=== PATIENT | female | born 1935 | race Caucasian/White ===

== ENCOUNTER 2019-10-01 20:06 | Emergency (ER) | payer MEDICARE, SELFPAY ==
[2019-10-01 20:07] VITALS: BP 211/92; PULSE 74; RESP 18; TEMP 36.7; O2SAT 90; BMI 30.2
--- NOTE | 2019-10-01 20:46 | CTR_ITS ---
PROCEDURE INFORMATION: Exam: CT Head Without Contrast Exam date and time: 10/01/2019 8:48 PM Age: 84 years old Clinical indication: Pain; Other: HTN; Headache not specified; Additional info: Hypertensive urgency, headache TECHNIQUE: Imaging protocol: Computed tomography of the head without contrast. Radiation optimization: All CT scans at this facility use at least one of these dose optimization techniques: automated exposure control; mA and/or kV adjustment per patient size (includes targeted exams where dose is matched to clinical indication); or iterative reconstruction. COMPARISON: No relevant prior studies available. 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 No abnormal intra-axial or extra-axial fluid collections are identified. There is no midline shift. No intracranial hemorrhage identified. Ventricles: The ventricular system is within normal limits for size and configuration. Bones/joints: Unremarkable as visualized. Sinuses: Visualized sinuses are unremarkable. No fluid levels. Mastoid air cells: Visualized mastoid air cells are well aerated. Soft tissues: Unremarkable. CT/CT head wo con* [id number] IMPRESSION: 1. No acute intracranial process identified. Radiation Dose CTDIVOL = (mGy): DLP = 820.39 (mGy-cm)
--- NOTE | 2019-10-01 20:47 | ECG_ITS ---
Measurements Intervals [place] Rate: 73 P: 48 IN: 166 QRS: 53 QRSD: 89 T: 46 QT: 394 QTc: 435 SINUS RHYTHM No previous ECG available for comparison Electronically Signed On 10-02-2019 18:19:31 CDT by Aries Monae M.D. [id number]
[2019-10-01 20:53] VITALS: BP 230/86; PULSE 73; RESP 17; O2SAT 92
--- NOTE | 2019-10-01 20:55 | PC.NURSE ---
patient states she has been on blood pressure medication for two years for high blood pressure. patient states two days ago she started having high blood pressure. patient states she the highest recorded reading was 257/120 at home today.
[2019-10-01 21:15] LABS: Basophils % 0.6 %; Eosinophils # 0.3 10^3/uL (0.0-0.8); Eosinophils % 4.2 %; Hematocrit 41.6 % (37.0-47.0); Hemoglobin 12.9 g/dL (11.5-15.3); Lymphocytes # 3.8 10^3/uL (0.8-4.8); Lymphocytes % 53.1 %; Mean Corpuscular Hemoglobin 30.9 pg (28.0-34.0); Mean Corpuscular Volume 99.5 fL (81-99); Mean Platelet Volume 10.3 fL (7.4-10.4); Monocytes # 0.6 10^3/uL (0.2-0.9); Monocytes % 8.7 %; Neutrophils # 2.4 10^3/uL (1.8-7.7); Neutrophils % 33.3 %; Nucleated Red Blood Cells % 0 %; Platelet Count 242 10^3/cmm (130-400); Red Blood Count 4.18 10^6/uL (4.1-5.3); Red Cell Distribution Width 13.7 % (12.1-15.1); White Blood Count 7.1 10^3/uL (4.0-10.0)
[2019-10-01 21:34] LABS: Troponin(5th) Baseline 6 ng/L (0-10)
[2019-10-01] MEDS: hyDRALAzine 20 mg/mL INJ 1 mL 10 MG IVP ×2 (21:34→22:45)
[2019-10-01 21:42] LABS: Alanine Aminotransferase 17 U/L (0-33); Albumin Level 4.3 g/dL (3.5-5.2); Alkaline Phosphatase 47 IU/L (35-105); Anion Gap 16.1 (5-19); Aspartate Amino Transferase 22 U/L (0-32); Blood Urea Nitrogen 13 mg/dL (8-23); Calcium 9.2 mg/dL (8.5-10.5); Carbon Dioxide 26 mmol/L (22-29); Chloride 100 mmol/L (98-107); Creatinine Clr Calc Pharmacy 49.3788; Globulin 2.7 g/dL (1.3-4.6); Glucose 103 mg/dL (65-115); Magnesium 2.2 mg/dL (1.7-2.3); NT Pro B Type Natriuretic Pept 196 pg/mL (0-450); Osmolality Calculated 282 mOsm/kg (285-295); Potassium 4.1 mmol/L (3.5-5.1); Sodium 138 mmol/L (136-145); Thyroid Stimulating Hormone 4.84 uIU/mL (0.27-4.20); Total Bilirubin 0.2 mg/dL (0.15-1.2)
[2019-10-01 22:01] LABS: Add Urine Microscopic? NO
[2019-10-01 22:09] LABS: Bilirubin Urine Neg (NEGATIVE); Blood Urine Neg (Negative); Glucose Urine UA Norm (Normal); Ketones Urine Negative (Negative); Leukocyte Esterase Urine Negative (Negative); Nitrate Urine Negative (Negative); Protein Urine Neg (Negative); Specific Gravity, Urine 1.015 (1.005-1.030); Urine Appearance Clear (CLEAR); Urine Color Yellow (Yellow); Urobilinogen Urine Norm (Negative); pH Urine 6.5 (5-7)
[2019-10-01 22:13] VITALS: BP 195/78; RESP 18; O2SAT 98
--- NOTE | 2019-10-01 22:47 | ECG_ITS ---
Measurements Intervals [place] Rate: 81 P: 47 PA: 196 QRS: 49 QRSD: 94 T: 34 QT: 401 QTc: 467 SINUS RHYTHM No previous ECG available for comparison Electronically Signed On 10-02-2019 18:20:22 CDT by Aries Monae M.D. [id number]
[2019-10-01 22:54] VITALS: BP 148/60; RESP 18; O2SAT 95
[2019-10-01] MEDS: diphenhydrAMINE 50 mg/mL SDV 1mL 25 MG IVP (23:09)
[2019-10-01 23:10] VITALS: BP 137/67; PULSE 97; RESP 17; O2SAT 91
[2019-10-01 23:15] LABS: Troponin 5 2HR 8.01 ng/L (0-10); Troponin 5 2HR Delta 2.01 ABS# (0-10)
[2019-10-02 00:01] VITALS: BP 153/77; PULSE 90; RESP 16; O2SAT 92
--- NOTE | 2019-10-02 00:08 | W.ED.GENADLT ---
HPI - General Adult General: Chief complaint: General Medical Stated complaint: high bp Time Seen by Provider: 10/01/19 20:41 Source: patient and family (daughter) Mode of arrival: ambulatory Limitations: no limitations History of Present Illness: HPI narrative: Patient is an 84-year-old female patient who presents to the emergency department with hypertension. She said that throughout the day her blood pressure has been elevated and getting higher with a systolic in the 200s. She has an associated headache. No chest pain, no difficulty breathing, no urinary symptoms. No abdominal pain, no blood in her urine. Because of her elevated blood pressure she presents for evaluation. She has taking half of her blood pressure medicines in the morning and a full tablet this evening. MD complaint: Hypertension Associated symptoms: Reports headache(s); Deny chest pain, dyspnea, nausea, rash, palpitations or vomiting Review of Systems General: Reports: 10 or more systems reviewed and unremarkable except in HPI and below Const: Denies: fever(s), chills or body aches Eyes: Denies: change in vision or blurry vision ENMT: Denies: throat pain, enlarged tonsils, odynophagia, hoarseness, mouth pain or swelling of lips/tongue Card: Denies: chest pain, palpitations, irregular heart rhythm, edema or swelling of feet/ankles Resp: Denies: dyspnea, productive cough or non-productive cough GI: Denies: abdominal pain, nausea or vomiting : Denies: flank pain, difficulty voiding, dysuria, urinary frequency, urinary urgency or urinary hesitancy Musc: Denies: neck pain, back pain or extremity swelling Skin/Breast: Denies: rash, pruritus or erythema Neuro: Reports: headache(s); Denies: numbness in extremities or weakness in extremities Endo: Denies: polyuria, polydipsia or tired all the time PFS ED PFSH: Social History Smoking and tobacco status: former smoker Physical Exam Const: COMMON NORMALS: no acute distress, average body habitus, patient oriented x3, no limitations, healthy appearing, alert and well nourished HENMT: COMMON NORMALS: normocephalic, atraumatic and moist oral mucous membranes HEAD & SCALP: normocephalic and atraumatic Eye: COMMON NORMALS: Equal, round and reactive pupils present, EOMs intact bilaterally, conjunctivae normal and no scleral icterus CONJUNCTIVA: Yes conjunctivae normal PUPIL: Yes Equal, round and reactive pupils present Neck/C-Spine: COMMON NORMALS: full ROM, supple, no meningeal signs, no JVD and No carotid bruits Chest: COMMONS NORMALS: normal inspection of the chest and normal palpation of entire chest wall Resp: COMMON NORMALS: normal respiratory effort, No retractions, No use of accessory muscles, clear to auscultation bilaterally and percussion normal AUSCULTATION: clear to auscultation bilaterally PERCUSSION: percussion normal Cardio: COMMON NORMALS: no JVD, regular rate, regular rhythm, S1 normal heart sound present, S2 normal heart sound present, No gallops present (Cardio), No clicks present (Cardio), No murmurs present (Cardio), No rub (Cardio) and Peripheral pulses 2+ throughout RATE: regular rate RHYTHM: regular rhythm HEART SOUNDS: S1 normal heart sound present and S2 normal heart sound present PERIPHERAL PULSES: Peripheral pulses 2+ throughout GI: COMMON NORMALS: Normal to inspection, nondistended, normoactive bowel sounds present, Soft to palpation, non-tender, No hepatosplenomegaly present, no masses and no bruits PALPATION: Yes Soft to palpation and Yes No hepatosplenomegaly present : COMMON NORMALS: Yes no CVA tenderness BLADDER/KIDNEY EXAM: Yes no CVA tenderness Back/Pelvis: COMMON NORMALS: no CVA tenderness Extremity: COMMON NORMALS: normal to inspection, full ROM, capillary refill normal, no calf tenderness and no pedal edema Neuro: COMMON NORMALS: patient oriented x3 SENSORIUM/ORIENTATION: Yes alert MENINGEAL SIGNS: Yes no meningeal signs Skin: COMMON NORMALS: no rashes or lesions noted, no wounds, turgor normal, no jaundice, no petechiae and no mottling GENERAL SKIN EXAM: no rashes or lesions noted and turgor normal Course Reevaluation(s): Reevaluation #1: Patient seen, she feels better. Itching and rash is resolved. Blood pressure 153/77. Patient thinks she is ready to be discharged home. We will discharge her home, to follow-up with her primary care provider. Discussed her lab and imaging findings with her, all negative for acute findings. TSH only mildly elevated, she is advised to follow-up with her primary care provider for repeat testing in 6 to 8 weeks. She voiced understanding and is in agreement with the plan Time: 00:09 Vital Signs: Vital signs: Vital Signs Temperature 98.0 F 10/01/19 20:07 Pulse Rate 90 10/02/19 00:15 Respiratory Rate 15 10/02/19 00:15 Blood Pressure 146/86 10/02/19 00:15 Pulse Oximetry 92 10/02/19 00:15 [facility] - General Adult Lab Data: Labs: Lab Results 10/01/19 10/01/19 10/01/19 Range/Units 20:50 20:50 20:50 WBC 7.1 (4.0-10.0) 10^3/ uL RBC 4.18 (4.1-5.3) 10^6/u L Hgb 12.9 (11.5-15.3) g/dL Hct 41.6 (37.0-47.0) % MCV 99.5 H (81-99) fL MCH 30.9 (28.0-34.0) pg MCHC 31.0 (30.0-36.0) g/dL RDW 13.7 (12.1-15.1) % Plt Count 242 (130-400) 10^3/c mm MPV 10.3 (7.4-10.4) fL Neut % (Auto) 33.3 % Lymph % (Auto) 53.1 % [place] % (Auto) 8.7 % Eos % (Auto) 4.2 % Baso % (Auto) 0.6 % Neut # (Auto) 2.4 (1.8-7.7) 10^3/u L Lymph # (Auto) 3.8 (0.8-4.8) 10^3/u L [place] # (Auto) 0.6 (0.2-0.9) 10^3/u L Eos # (Auto) 0.3 (0.0-0.8) 10^3/u L Baso # (Auto) 0.0 (0.0-0.1) 10^3/u L Nucleated RBC % (a uto) 0 % Nucleated RBCs # 0.0 /100WBC Sodium 138 (136-145) mmol/L Potassium 4.1 (3.5-5.1) mmol/L Chloride 100 (98-107) mmol/L Carbon Dioxide 26 (22-29) mmol/L Anion Gap 16.1 (5-19) BUN 13 (8-23) mg/dL Creatinine 0.9 (0.5-0.9) mg/dL Glucose 103 (65-115) mg/dL Calculated Osmolal ity 282 L (285-295) mOsm/k g Calcium 9.2 (8.5-10.5) mg/dL Magnesium 2.2 (1.7-2.3) mg/dL Total Bilirubin 0.2 (0.15-1.2) mg/dL AST 22 (0-32) U/L ALT 17 (0-33) U/L Alkaline Phosphata se 47 (35-105) IU/L Troponin T Baselin e 6 (0-10) ng/L Troponin T 120 Min latoya (0-10) ng/L Delta Troponin T (0-10) ABS# NT-Pro-B Natriuret Pep 196 (0-450) pg/mL Total Protein 7.0 (6.6-8.7) g/dL Albumin 4.3 (3.5-5.2) g/dL Globulin 2.7 (1.3-4.6) g/dL TSH 4.84 H (0.27-4.20) uIU/ mL Urine Color (Yellow) Urine Appearance (CLEAR) Urine pH (5-7) Ur Specific Gravit y (1.005-1.030) Urine Protein (Negative) Urine Glucose (UA) (Normal) Urine Ketones (Negative) Urine Blood (Negative) Urine Nitrate (Negative) Urine Bilirubin (NEGATIVE) Urine Urobilinogen (Negative) mg/dL Ur Leukocyte Johana ase (Negative) 10/01/19 10/01/19 Range/Units 21:07 22:43 WBC (4.0-10.0) 10^3/ uL RBC (4.1-5.3) 10^6/u L Hgb (11.5-15.3) g/dL Hct (37.0-47.0) % MCV (81-99) fL MCH (28.0-34.0) pg MCHC (30.0-36.0) g/dL RDW (12.1-15.1) % Plt Count (130-400) 10^3/c mm MPV (7.4-10.4) fL Neut % (Auto) % Lymph % (Auto) % Woodford % (Auto) % Eos % (Auto) % Baso % (Auto) % Neut # (Auto) (1.8-7.7) 10^3/u L Lymph # (Auto) (0.8-4.8) 10^3/u L [place] # (Auto) (0.2-0.9) 10^3/u L Eos # (Auto) (0.0-0.8) 10^3/u L Baso # (Auto) (0.0-0.1) 10^3/u L Nucleated RBC % (a uto) % Nucleated RBCs # /100WBC Sodium (136-145) mmol/L Potassium (3.5-5.1) mmol/L Chloride (98-107) mmol/L Carbon Dioxide (22-29) mmol/L Anion Gap (5-19) BUN (8-23) mg/dL Creatinine (0.5-0.9) mg/dL Glucose (65-115) mg/dL Calculated Osmolal ity (285-295) mOsm/k g Calcium (8.5-10.5) mg/dL Magnesium (1.7-2.3) mg/dL Total Bilirubin (0.15-1.2) mg/dL AST (0-32) U/L ALT (0-33) U/L Alkaline Phosphata se (35-105) IU/L Troponin T Baselin e (0-10) ng/L Troponin T 120 Min latoya 8.01 (0-10) ng/L Delta Troponin T 2.01 (0-10) ABS# NT-Pro-B Natriuret Pep (0-450) pg/mL Total Protein (6.6-8.7) g/dL Albumin (3.5-5.2) g/dL Globulin (1.3-4.6) g/dL TSH (0.27-4.20) uIU/ mL Urine Color Yellow (Yellow) Urine Appearance Clear (CLEAR) Urine pH 6.5 (5-7) Ur Specific Gravit y 1.015 (1.005-1.030) Urine Protein Neg (Negative) Urine Glucose (UA) Norm (Normal) Urine Ketones Negative (Negative) Urine Blood Neg (Negative) Urine Nitrate Negative (Negative) Urine Bilirubin Neg (NEGATIVE) Urine Urobilinogen Norm (Negative) mg/dL Ur Leukocyte Johana ase Negative (Negative) Imaging Data^: CT Head: Radiologist's impression: [facility] [address] [place] [address] CT Scan Report Signed Patient: Lisa Weber #: [id number] : 6Acct#:[id number] Age/Sex: 84 / FADM Date: 10/01/19 Loc: ERRoom/Bed: Attending Dr: Ordering Provider/Ordering MD: Félix Parker MD, [facility] Date of Service: 10/01/19 Procedure(s): CT head wo con* [id number] Accession Number(s): [id number] Report Number: [id number] PROCEDURE INFORMATION: Exam: CT Head Without Contrast Exam date and time: 10/01/2019 8:48 PM Age: 84 years old Clinical indication: Pain; Other: HTN; Headache not specified; Additional info: Hypertensive urgency, headache TECHNIQUE: Imaging protocol: Computed tomography of the head without contrast. Radiation optimization: All CT scans at this facility use at least one of these dose optimization techniques: automated exposure control; mA and/or kV adjustment per patient size (includes targeted exams where dose is matched to clinical indication); or iterative reconstruction. COMPARISON: No relevant prior studies available. 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 No abnormal intra-axial or extra-axial fluid collections are identified. There is no midline shift. No intracranial hemorrhage identified. Ventricles: The ventricular system is within normal limits for size and configuration. Bones/joints: Unremarkable as visualized. Sinuses: Visualized sinuses are unremarkable. No fluid levels. Mastoid air cells: Visualized mastoid air cells are well aerated. Soft tissues: Unremarkable. CT/CT head wo con* [id number] IMPRESSION: 1. No acute intracranial process identified. Radiation Dose CTDIVOL = (mGy): DLP = 820.39 (mGy-cm) Dictated By:Jordan Molina MD Signed By:Jesse,Jordan MDSigned Date/Time:10/01/192125 DD/ 24 EKG Data^: EKG 1: Attestation: I personally reviewed and interpreted this EKG as follows: EKG interpretation date: 10/01/19 EKG interpretation time: 20:59 Prior EKG tracings: not available for review Interpretation: Normal sinus rhythm Heart rate 73 beats per minute. Normal axis. No ST changes. Computer generated interpretation: Head CT 10/01/19 20:46 IMPRESSION: 1. No acute intracranial process identified. Radiation Dose CTDIVOL = (mGy): DLP = 820.39 (mGy-cm) EKG 2: Attestation: I personally reviewed and interpreted this EKG as follows: EKG interpretation date: 10/01/19 EKG interpretation time: 22:59 Prior EKG tracings: available for review Interpretation: Normal sinus rhythm. Heart rate 81 bpm. Normal axis. No ST changes. Unchanged from earlier today. Computer generated interpretation: Head CT 10/01/19 20:46 IMPRESSION: 1. No acute intracranial process identified. Radiation Dose CTDIVOL = (mGy): DLP = 820.39 (mGy-cm) Discharge Plan Discharge Patient Disposition: Home, Self-Care Clinical Impression: Hypertensive urgency Condition: Stable Prescriptions: New triamcinolone acetonide 0.5 % cream 1 applic TOPICAL BID Qty: 15 RF: 0 Continued vitamin E 600 unit Capsule 600 unit PO DAILY RF: 0 aspirin 81 mg Tablet,Delayed Release (Dr/Ec) 81 mg PO DAILY RF: 0 pantoprazole 40 mg Tablet,Delayed Release (Dr/Ec) 40 mg PO DAILY RF: 0 losartan 25 mg Tablet 25 mg PO DAILY RF: 0 escitalopram oxalate 20 mg Tablet 20 mg PO DAILY RF: 0 [id number] oil [id number] Capsule 1 cap PO DAILY RF: 0 Vitamin D3 50 mcg (2,000 unit) Capsule 50 mcg PO DAILY RF: 0 Discharge Orders: Discharge Order (Routine); Ordered 10/02/19 Ordered By: Félix Parker Patient Instructions: Hypertensive Crisis (ED) Activity Restrictions/Additional Instructions: Return for any new or worsening symptoms. Follow-up with your primary care provider within 3 days. Continue your home medications as prescribed. 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
[2019-10-02 00:15] VITALS: BP 146/86; PULSE 90; RESP 15; O2SAT 92
== END 2019-10-02 00:17 | disposition home or self-care (01) ==
PROVIDERS: Emergency Provider Family Medicine
DX: I16.0 Hypertensive urgency (principal); Z79.82 Long term (current) use of aspirin; Z87.891 Personal history of nicotine dependence
CPT/HCPCS: 12345; 70450; 80053; 81003; 83735; 83880; 84443; 84484; 85025; 93005; 96374; 96375; 96376; 99283; 99284; J0360; J1200

== ENCOUNTER 2019-10-02 00:48 | Observation (INO) | payer MEDICARE, SELFPAY ==
[2019-10-02] VITALS (14 sets, daily range): BP systolic 118–183; BP diastolic 58–92; PULSE 72–88; RESP 16–20; TEMP 36.7–37.1; O2SAT 91–95; BMI 30.9
--- NOTE | 2019-10-02 00:51 | ECG_ITS ---
Measurements Intervals [place] Rate: 71 P: 52 SC: 175 QRS: 52 QRSD: 93 T: 42 QT: 427 QTc: 466 SINUS RHYTHM No previous ECG available for comparison Electronically Signed On 10-02-2019 18:19:37 CDT by Aries Monae M.D. [id number]
--- NOTE | 2019-10-02 00:52 | W.ED.SYNCOPE ---
HPI - Syncope General: Chief Complaint: Syncope Stated Complaint: fainting Time Seen by Provider: 10/02/19 00:50 History of Present Illness: HPI narrative: Patient is an 84-year-old female comes to the ED with syncopal episode. Past medical history of GERD and hypertension. Patient was just discharged from emergency department for hypertensive urgency. Patient had high blood pressures and was given some hydralazine while here in the ED to help lower blood pressures. Lab work performed before patient was discharged earlier tonight EKG showed normal sinus rhythm and troponin was negative. CBC, CMP and UA were also performed and were unremarkable. CT of head showed no acute findings. Patient's current blood pressure here in the ED is 136/61. Her highest blood pressure in the ED was 230/86 and that was around 11pm on 09/30. patient's syncopal episode occurred while she was sitting down and her family member was right next to her and was able and her rest up against her body. Syncopal episode lasted approximately around 60 seconds. There was no fall or head trauma that occurred. Patient currently lives in [place] and is here visiting family. Patient says she has had bilateral lower leg swelling and pain that started right after her plane ride and car travel to [place]. She denies any shortness of breath, cough or chest pains. Patient says she is not in any past blood clots or DVTs. Patient does take aspirin 81 mg daily but is not on any other blood thinners. After syncopal episode patient says she feels a little shaky. Associated symptoms: Reports lightheadedness; Deny abdominal pain, chest pain, fever(s), headache(s) or nausea Review of Systems Const: Reports: other ( feels shakey ); Denies: fever(s), chills or fatigue Eyes: Denies: change in vision or eye discomfort ENMT: Denies: throat pain, odynophagia, nasal discharge or nasal congestion Card: Reports: lightheadedness and syncope; Denies: chest pain, palpitations, edema, swelling of feet/ankles, dyspnea on exertion or orthopnea Resp: Denies: dyspnea, productive cough or non-productive cough GI: Denies: abdominal pain, nausea, vomiting, diarrhea, constipation or hematochezia : Denies: flank pain, dysuria or hematuria Musc: Reports: extremity pain (right and left lower extremities) and extremity swelling (right and left lower extremities); Denies: neck pain or back pain Skin/Breast: Denies: rash or new lesions Neuro: Denies: headache(s), numbness in extremities or weakness in extremities PFSH ED PFSH: Social History Smoking and tobacco status: former smoker Physical Exam Const: COMMON NORMALS: no acute distress, patient oriented x3 and alert GENERAL APPEARANCE: cooperative and comfortable HENMT: COMMON NORMALS: normocephalic HEAD & SCALP: normocephalic MOUTH: Normal oral and palatal mucosa present THROAT: posterior oropharynx normal and uvula midline Neck/C-Spine: COMMON NORMALS: supple GENERAL: Yes normal visual inspection Resp: COMMON NORMALS: normal respiratory effort, No retractions, No use of accessory muscles and clear to auscultation bilaterally EFFORT & INSPECTION: Yes able to speak in complete sentences and No respiratory distress AUSCULTATION: clear to auscultation bilaterally Cardio: COMMON NORMALS: regular rate, regular rhythm, S1 normal heart sound present, S2 normal heart sound present, No gallops present (Cardio), No clicks present (Cardio), No murmurs present (Cardio) and Peripheral pulses 2+ throughout RATE: regular rate RHYTHM: regular rhythm HEART SOUNDS: S1 normal heart sound present and S2 normal heart sound present PERIPHERAL PULSES: Peripheral pulses 2+ throughout GI: COMMON NORMALS: Normal to inspection, nondistended, normoactive bowel sounds present, Soft to palpation, non-tender and no masses PALPATION: Yes Soft to palpation : COMMON NORMALS: Yes no CVA tenderness BLADDER/KIDNEY EXAM: Yes no CVA tenderness Back/Pelvis: COMMON NORMALS: no CVA tenderness Extremity: GENERAL: Yes normal exam except as noted and Yes edema (Right and left lower extremity 1+ pitting edema.) Neuro: COMMON NORMALS: patient oriented x3, CN's II-XII intact bilaterally, moves all extremities, no focal motor deficits and no sensory deficits noted SENSORIUM/ORIENTATION: Yes alert SENSORY EXAM: Yes extremities (intact) MOTOR EXAM: 5/5 motor strength present throughout Skin: COMMON NORMALS: no rashes or lesions noted GENERAL SKIN EXAM: no rashes or lesions noted and dry skin Course Consultations: Consultation #1: I contacted the [facility] on-call hospitalist and discussed patient's case with . He said that he would like to come in and see the patient and talk with the family to see what their thoughts are and then he would make a decision on admitting from there. Time: 03:03 Vital Signs: Vital signs: Vital Signs Temperature 98.1 F 10/02/19 00:53 Pulse Rate 79 10/02/19 02:33 Respiratory Rate 20 H 10/02/19 01:15 Blood Pressure 146/65 10/02/19 02:33 Pulse Oximetry 93 10/02/19 02:33 MDM - Syncope MDM Narrative: Medical decision making narrative: Patient is an 84-year-old female comes to the ED after syncopal episode. Patient was just discharged from the emergency department after hypertensive urgency and was sitting outside when syncopal episode occurred. She then was readmitted to the ED for reevaluation. Patient had an extensive work-up during ED visit earlier that night. CT of the head was normal, CBC and CMP and UA were unremarkable EKG showed normal sinus rhythm and troponins were negative. During this visit to the ED after syncopal episode patient admitted having some bilateral leg swelling and pain and her oxygen level was running between 90 and 93%. Nurse then applied 2 L of oxygen via nasal cannula and patient has been running at about 93% O2. Patient has never been on oxygen in the past or at home. Lungs were clear to auscultation bilaterally. Ultrasound venous duplex of both lower extremity showed no blood clots or DVTs. Chest x-ray showed bilateral mild patchy airspace opacities possibly atelectasis or consolidation. I contacted the on-call hospitalist here at [facility] and told him about patient's case. He said he would come down to visit patient, talk with family and evaluate her and then make a decision on admission. Told patient about hospitalist coming down to evaluate patient. Patient understood and agreed with plan. Imaging Data^: CXR: Attestation: I personally reviewed and interpreted this imaging study as follows: Radiologist's impression: [address] [address] XRay Report Signed Patient: Lisa Weber #: [id number] : 6Acct#:[id number] Age/Sex: 84 / FADM Date: 10/02/19 Loc: ERRoom/Bed: Attending Dr: Ordering Provider/Ordering MD: Paul Riley Date of Service: 10/02/19 Procedure(s): XR chest 1V portable [id number] Accession Number(s): [id number] Report Number: [id number] PROCEDURE INFORMATION: Exam: XR Chest, 1 View Exam date and time: 10/02/2019 1:21 AM Age: 84 years old Clinical indication: Other: Syncope and collapse, low BP; Additional info: Syncopal episode TECHNIQUE: Imaging protocol: XR of the chest Views: 1 view. COMPARISON: No relevant prior studies available. FINDINGS: Lungs: Mild patchy airspace opacities (atelectasis and/or consolidation) at bilateral lung bases. Pulmonary vasculature within normal limits. Pleural space: No visible pneumothorax or pleural effusion. Heart/Mediastinum: Heart size within normal limits. Bones/joints: No emergent findings identified. XR/XR chest 1V portable [id number] IMPRESSION: 1. Mild patchy airspace opacities (atelectasis and/or consolidation) at bilateral lung bases. Dictated By:Jordan Molina MD Signed By:Jordan Molina MDSigned Date/Time:10/02/19150 DD/ 015 US Vascular: Attestation: I personally reviewed and interpreted this imaging study as follows: Radiologist's impression: Ultrasound venous duplex bilateral lower extremities?prelim report- showed no DVTs or blood clots seen. 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
--- NOTE | 2019-10-02 01:03 | USR_ITS ---
PROCEDURE INFORMATION: Exam: US Duplex Lower Extremity Veins, Bilateral Exam date and time: 10/02/2019 2:14 AM Age: 84 years old Clinical indication: Swelling (edema) of limb; Lower extremity, bilateral; Additional info: Swelling in both with pain TECHNIQUE: Imaging protocol: Real-time duplex ultrasound of the extremities with 2-D mishra scale, color Doppler flow and spectral waveform analysis with image documentation. Complete exam focused on the bilateral lower extremity veins. COMPARISON: No relevant prior studies available. FINDINGS: Right deep veins: No deep venous thrombosis in the visualized right common femoral, profunda femoris, superficial femoral, popliteal, peroneal, or posterior tibial veins. Right superficial veins: Saphenofemoral junction is patent without thrombus. Left deep veins: No deep venous thrombosis in the visualized left common femoral, profunda femoris, superficial femoral, popliteal, peroneal, or posterior tibial veins. Left superficial veins: Saphenofemoral junction is patent without thrombus. Soft tissues: Unremarkable. US/CV venous duplex [facility] [id number] IMPRESSION: No deep venous thrombosis in the visualized bilateral lower extremities.
--- NOTE | 2019-10-02 01:11 | PC.NURSE ---
patient was discharged from ED and was waiting outside of ED for a ride with her daughter. patient stated she felt faint and saw black. patients daughter states that patient was sitting and leaned on her and went down to the ground. patient states that she is not feeling faint in the ED but has a headache.
--- NOTE | 2019-10-02 01:20 | XRR_ITS ---
PROCEDURE INFORMATION: Exam: XR Chest, 1 View Exam date and time: 10/02/2019 1:21 AM Age: 84 years old Clinical indication: Other: Syncope and collapse, low BP; Additional info: Syncopal episode TECHNIQUE: Imaging protocol: XR of the chest Views: 1 view. COMPARISON: No relevant prior studies available. FINDINGS: Lungs: Mild patchy airspace opacities (atelectasis and/or consolidation) at bilateral lung bases. Pulmonary vasculature within normal limits. Pleural space: No visible pneumothorax or pleural effusion. Heart/Mediastinum: Heart size within normal limits. Bones/joints: No emergent findings identified. XR/XR chest 1V portable [id number] IMPRESSION: 1. Mild patchy airspace opacities (atelectasis and/or consolidation) at bilateral lung bases.
--- NOTE | 2019-10-02 01:23 | PC.NURSE ---
patient placed on 2 liters of oxygen to maintain spo2 > 91
[2019-10-02] MEDS: acetaminophen 500 mg Tablet PO (02:43)
[2019-10-02] MEDS: sodium chloride 0.9% 500 ML IV (03:24)
[2019-10-02] MEDS: cefTRIAXone 1,000 MG in sodium chloride 0.9% (plus) 50 ML 100 MG IV (03:25)
--- NOTE | 2019-10-02 03:27 | P.HP_ITS ---
Providers/Chief Complaint Chief Complaint: fainting History of Present Illness Lisa Weber is a 84 year old female carries history of hypertension, GERD with no significant other past medical history came in with chief complaint of high blood pressure and headache. Patient has traveled from [place] to attend a here, today she was experiencing headache all day and when he checked her blood pressure it was 257/120, she took extra dose of losartan but her pressure was consistently high hence decided to come to the ED. She got hydralazine for her blood pressure 230/86, was discharged after her blood pressure reduced to 141/58mmhg. while she was in the parking lot she felt dizzy and had syncopal event which was witnessed by her daughter who brought her back. On her second visit her blood pressure has been ranging between 1 46-1 83mmhg systolic, she was on 2 L nasal cannula initially, I had her walk down the miranda, she went to bathroom, she was not requiring oxygen at all when I checked her pulse ox on room air, no active respiratory stress, she has been afebrile, she is denying chest pain, shortness of breath, fever, and is constantly only had one case in [place]. She has not been exposed to anyone with COVID. Her chest x-ray is consistent with basal atelectasis, she has received ceftriaxone and azithromycin in the ER. She denies history of stroke, [place], aortic aneurysm. Diagnostics in the ER are unremarkable, she has negative CT head, no clots in her legs bilaterally, Dopplers done in the ER, x-ray consistent with atelectasis, troponins negative, EKG unremarkable At the time of my evaluation negative orthostasis, requiring no oxygen on room air, systolic blood pressure 180/90mmhg, no symptoms at all, Romberg's sign negative Review of Systems Const: Denies: fever(s) or chills Eyes: Denies: change in vision ENMT: Denies: throat pain Card: Denies: chest pain Resp: Denies: dyspnea GI: Denies: abdominal pain : Denies: flank pain Musc: Denies: neck pain Skin/Breast: Denies: rash Neuro: Denies: headache(s) Psych: Denies: anxiety Endo: Denies: polyuria Natalio/Lymph: Denies: easy bruising All/Imm: Denies: urticaria Medications/Allergies Home Medications Medication Instructions Recorded Confirmed Last Taken Type Vitamin D3 50 mcg PO DAILY 10/01/19 10/01/19 10/01/19 History aspirin 81 mg PO DAILY 10/01/19 10/01/19 10/01/19 History escitalopram oxalate 20 mg PO DAILY 10/01/19 10/01/19 10/01/19 History losartan 25 mg PO DAILY 10/01/19 10/01/19 10/01/19 History [id number]-fish oil 1 cap PO DAILY 10/01/19 10/01/19 10/01/19 History pantoprazole 40 mg PO DAILY 10/01/19 10/01/19 10/01/19 History vitamin E 600 unit PO DAILY 10/01/19 10/01/19 10/01/19 History triamcinolone acetonide 1 applic TOPICAL BID #15 gm 10/02/19 Unknown Rx Allergies Allergy/AdvReac Type Severity Reaction Status Date / Time No Known Allergies Allergy Verified 10/01/19 20:14 PFSH Acute PFSH: Medical History (Updated 10/02/19 @ 03:38 by Aries Vu MD) GERD (gastroesophageal reflux disease) Hypertension Surgical History (Updated 10/02/19 @ 03:36 by Aries Vu MD) H/O colectomy Diverticulitis S/P cholecystectomy Family History (Updated 10/02/19 @ 03:37 by Aries Vu MD) Other Hypertension Denies family history of Hyperlipidemia Lung disease Social History (Updated 10/02/19 @ 03:37 by Aries Vu MD) Smoking and tobacco status: former smoker Alcohol intake: never Substance/Drug Use: never Lives independently: Yes Housing: House Vitals/I&O/Wt Last Vital Signs Temp 98.1 F 10/02/19 00:53 Pulse 79 10/02/19 03:00 Resp 18 10/02/19 03:00 BP 183/76 10/02/19 03:00 Pulse Ox 95 10/02/19 03:00 Weight last 48 hrs Weight 81.647 kg Physical Exam Narrative: EXAM NARRATIVE: Head to toe examination Patient sitting at the bedside, I have evaluated her gait, she walked down the miranda Did not require oxygen at all No active respiratory distress Romberg's sign negative Orthostatics negative S1, S2 no tachycardia or murmur No signs of heart failure Lungs are clear to auscultation no active adventitious sounds Abdomen soft nontender nondistended bowel sound present Neurologically nonfocal exam Alert oriented x3 GCS 15 Appropriate mood and affect Skin does not show any sign ischemia gangrene ulcer Data Micro: Microbiology 10/02/19 02:57 Blood Culture - Preliminary Blood SPECIMEN COLLECTED 10/02/19 02:58 Blood Culture - Preliminary Blood SPECIMEN COLLECTED A&P Assessment and plan (1) Hypertensive urgency: Status: Acute (2) Syncopal episodes: Status: Acute Additional A&P Information Hypertensive urgency and syncopal event secondary to rapid decrease in her blood pressure Patient is and is now feeling better with her blood pressure fluctuating between 1 60-1 80mmhg systolic Negative orthostasis, negative Romberg sign, no aortic stenosis murmur, no neurological deficit, EKG unremarkable, bilateral leg Dopplers negative for DVT, CT head negative for acute pathology Chest x-ray is consistent with atelectasis, she saturating well on room air She received ceftriaxone and azithromycin in the ER, will discontinue antibiotics, low risk for COVID, she does not have infiltrates on x-ray in my opinion I believe her syncopal event was due to rapid decrease in blood pressure, I will target map reduction 25%, her systolic blood pressure today was 257mmhg and diastolic 120 mmHg We will check TSH No active murmur, would not order an echo, she denies history of NC, CHF or valvular lesion Add lisinopril and low-dose amlodipine DVT prophylaxis: Lovenox GI prophylaxis protonix Cardiac diet Full code Attestations Medical Necessity Statement*: Anticipating discharge within 48 hours currently needs management for blood pressure management, she had 1 syncopal event in the parking lot that will need observation overnight Time Spent in Patient Care: 45 Coding Level of Care Code Acute Fitting Room Supervisor for [facility] Fwmeghan Diagnoses Hypertensive urgency I16.0 Syncopal episodes R55
[2019-10-02] MEDS: azithromycin 500 MG in sodium chloride 0.9% 250 ML 250 MG IV (04:01)
[2019-10-02 05:34] LABS: Free T4 Free Thyroxine 1.22 ng/dL (0.82-1.77)
[2019-10-02] MEDS: enoxaparin 40 mg/0.4 mL Syringe SUBCUT (08:51)
[2019-10-02] MEDS: aspirin 81 mg EC Tablet PO (08:52)
[2019-10-02] MEDS: lisinopril 10 mg Tablet PO (08:52)
[2019-10-02] MEDS: losartan 50 mg Tablet 25 MG PO (08:52)
[2019-10-02] MEDS: pantoprazole DR 40 mg Tablet PO (08:53)
--- NOTE | 2019-10-02 12:20 | PM.DCS ---
Discharge Providers Date of Admission: 10/02/19 03:44 Date of Discharge: October 02, 2019 Attending Provider at Admission: Aries Vu MD Attending Provider at Discharge: Juan Pablo Garcia MD Diagnoses at Discharge Discharge Diagnosis (1) Hypertensive urgency: Status: Acute (2) Syncopal episodes: Status: Acute Reason for Visit Reason for Visit: fainting Hospital Course Discharge Summary: Lisa Weber is a 84 year old female carries history of hypertension, GERD with no significant other past medical history came in with chief complaint of high blood pressure and headache. Patient has traveled from [place] to attend a here, today she was experiencing headache all day and when he checked her blood pressure it was 257/120, she took extra dose of losartan but her pressure was consistently high hence decided to come to the ED. She got hydralazine for her blood pressure 230/86, was discharged after her blood pressure reduced to 141/58mmhg. While she was in the parking lot she felt dizzy and had syncopal event which was witnessed by her daughter who brought her back. On her second visit her blood pressure has been ranging between 1 46-1 83mmhg systolic, she was on 2 L nasal cannula initially, she walked down the miranda, she went to bathroom, she was not requiring oxygen at all when, no active respiratory stress, she has been afebrile, she is denying chest pain, shortness of breath, fever. She has not been exposed to anyone with COVID. Her chest x-ray is consistent with basal atelectasis, she has received ceftriaxone and azithromycin in the ER. She denies history of stroke, [place], aortic aneurysm. Diagnostic in the ER showed a normal CBC, normal BMP with an elevated TSH of 4.8 but free T4 was within normal limits, urinalysis was within normal limits as well. CT head was done which was negative for any acute injury and lower limb Dopplers were done which is negative for any DVT. She is admitted to the floor for observation. As patient did not have any fever, no leukocytosis and no active signs of respiratory distress she was not started on any further antibiotics. Amlodipine was added to her home medication her blood pressure remained stable. Next morning her blood pressure is a lot better and she was denying of any dizziness. Patient walked around in the miranda without having any dizziness though orthostatics were checked which were mildly positive. Patient and family was extensively counseled and educated regarding positional blood pressures and she will educated about sitting up and standing up slowly from lying down position to prevent any further dizziness. Patient was also advised to check her blood pressure at least twice a day and maintain a blood pressure diary for next 2 weeks and then follow-up with the primary care physician in [place]. Patient is also advised to take amlodipine 5 mg daily and if the blood pressure is more than 160 or take an extra tablet of amlodipine not more than 1 time a day. Patient and patient's daughter verbalized understanding. She is been discharged in hemodynamic stable condition with no further symptoms of dizziness. Physical Exam Narrative: EXAM NARRATIVE: General: No acute distress, AO x3 HEENT: PERRLA, pupils bilaterally equal and reactive Chest: Normal vesicular breath sounds, no added sounds, equal good air entry bilaterally CVS: S1-S2 regular, no murmurs, no tachycardia, no gallops, no rubs Abdomen: Soft, nontender, no organomegaly, bowel sounds present Neuro: No focal deficits, no facial deformity, AO x3, power 5/5 in all limbs Discharge Data Data Completed and Pending: Completed Studies During Hospitalization Category Date Time Status XR chest 1V radha ble [id number] Stat Exams 10/02/19 01:20 [place] [id number] Urgent Ultrasound 10/02/19 01:03 Completed Pending at discharge Category Date Time Status Blood Culture Sta t Lab 10/02/19 02:57 Results Labs from last 24 hours 10/02/19 02:57 Free T4 1.22 Vitals: Last Vital Signs Temp 98.7 F 10/02/19 07:18 Pulse 76 10/02/19 11:11 Resp 18 10/02/19 12:02 BP 153/72 10/02/19 11:11 Pulse Ox 91 10/02/19 07:18 Discharge Plan Discharge Patient Disposition: Home, Self-Care Condition: Stable Prescriptions: New amlodipine 5 mg Tablet 5 mg PO DAILY Qty: 30 RF: 0 Continued vitamin E 600 unit Capsule 600 unit PO DAILY RF: 0 aspirin 81 mg Tablet,Delayed Release (Dr/Ec) 81 mg PO DAILY RF: 0 pantoprazole 40 mg Tablet,Delayed Release (Dr/Ec) 40 mg PO DAILY RF: 0 losartan 25 mg Tablet 25 mg PO DAILY RF: 0 escitalopram oxalate 20 mg Tablet 20 mg PO DAILY RF: 0 [id number]-FA-fish oil [id number] Capsule 1 cap PO DAILY RF: 0 Vitamin D3 50 mcg (2,000 unit) Capsule 50 mcg PO DAILY RF: 0 triamcinolone acetonide 0.5 % cream 1 applic TOPICAL BID Qty: 15 RF: 0 Discharge Orders: Discharge Order (Routine); Ordered 10/02/19 Ordered By: Juan Pablo Garcia Discharge Diet: Cardiac Discharge Activity: Resume usual activity Patient Instructions: Amlodipine (By mouth), Hypertension, How to Take a Blood Pressure (GEN), Hypertensive Crisis (GEN) Activity Restrictions/Additional Instructions: Amlodipine is a new medication which is been added to your medication list. Please check blood pressure twice a day and maintain a blood pressure diary and please follow up with your PCP in [place] within 2 weeks. Your blood pressure should be less than 140/80 mmHg. If your blood pressure rises more than 160 mmHg then he can take an extra tablet of amlodipine but please do not take more than 1 extra tablet a day. If her blood pressure continues to remain elevated at that point please visit the ER. Discharge Attestations Time Spent in Discharge Care*: greater than 30 min Specific Discharge Activities: Specific discharge activities: educating patient, educating and/or supporting family/caregiver, discussing with pillowcase cutter/social workers/dc planners, documenting/other paperwork and evaluating patient/reviewing data Status at Discharge: Cognitive status at discharge: cognitively intact, Behavioral status at discharge: cooperative, Functional status at discharge: independent ambulation Overall status at discharge: patient is back to baseline Quality Metrics Clinical Quality Measures During this hospital stay, did patient experience: None Coding Level of Care Code Acute 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
== END 2019-10-02 13:24 | disposition home or self-care (01) ==
LOC: ER 01:14 → MEDSURG 04:10
PROVIDERS: Admitting Provider Internal Medicine; Visit Provider Student in an Organized Health Care Education/Training Program
DX: I16.0 Hypertensive urgency (principal); R55 Syncope and collapse; K21.9 Gastro-esophageal reflux disease without esophagitis; Z79.82 Long term (current) use of aspirin; Z82.49 Family history of ischemic heart disease and other diseases of the circulatory system; Z87.891 Personal history of nicotine dependence
CPT/HCPCS: 12345; 71045; 84439; 87040; 93005; 93970; 96365; 96368; 96372; 99283; 99285; G0378; J0456; J0696; J1650; J7040; J7050

== ENCOUNTER 2021-02-20 11:26 | Observation (INO) | payer MEDICARE, SELFPAY ==
[2021-02-20] VITALS (9 sets, daily range): BP systolic 113–168; BP diastolic 57–75; PULSE 62–80; RESP 16–29; TEMP 36.2–37.1; O2SAT 90–97; BMI 29.9
--- NOTE | 2021-02-20 12:14 | ECG_ITS ---
[facility] Test Date: 2021-02-20 Pat Name: Lisa Weber Department: Room: Gender: Female Internal Affairs Commander: : [id number] Requested By: Chelsy Montes Order Number: [id number] Elayne MD: Tru Galan M.D. Measurements Intervals [place] Rate: 69 P: 68 AL: 192 QRS: 61 QRSD: 89 T: 65 QT: 402 QTc: 432 Interpretive Statements SINUS RHYTHM WITH OCCASIONAL SUPRAVENTRICULAR PREMATURE COMPLEXES Compared to ECG 10/02/2019 01:10:59 No significant changes Electronically Signed On 02-20-2021 23:24:56 CDT by Tru Galan M.D. [email or web address]
--- NOTE | 2021-02-20 12:14 | CTR_ITS ---
PROCEDURE INFORMATION: Exam: CT Head Without Contrast Exam date and time: 02/20/2021 12:14 PM Age: 85 years old Clinical indication: Extremity weakness and lightheadedness. TECHNIQUE: Imaging protocol: Computed tomography of the head without contrast. Radiation optimization: All CT scans at this facility use at least one of these dose optimization techniques: automated exposure control; mA and/or kV adjustment per patient size (includes targeted exams where dose is matched to clinical indication); or iterative reconstruction. COMPARISON: CT head wo con* [id number] 10/01/2019 9:08 PM RADIATION DOSE METRICS: Total DLP (mGy-cm): 888.81 FINDINGS: Brain: No acute intracranial hemorrhage. 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 Possible lacunar infarcts in the lena. These could be artifactual. Consider MRI if clinically concerned for acute lacunar infarct. No mass, mass effect or midline shift.. There is no evidence of acute large vessel infarct.. There is minimal patchy subcortical and periventricular hypodensity, most commonly associated with small vessel ischemic disease of indeterminate age. Cerebral ventricles: The ventricles are normal in configuration. Paranasal sinuses: The visualized paranasal sinuses are clear. Mastoid air cells: No mastoid effusion. Orbital cavity: The visualized orbits are unremarkable. Bones/joints: No acute fracture is seen. CT/CT head wo con* [id number] IMPRESSION: 1. Possible lacunar infarcts in the lena. These could be artifactual. Consider MRI if clinically concerned for acute lacunar infarct. 2. Minimal presumed small vessel ischemic disease of indeterminate age. 3. No acute intracranial hemorrhage. Radiation Dose CTDIVOL = (mGy): DLP = 888.81 (mGy-cm)
--- NOTE | 2021-02-20 12:14 | CTR_ITS ---
PROCEDURE INFORMATION: Exam: CT Angiography Head With Contrast, Arteriography Exam date and time: 02/20/2021 12:14 PM Age: 85 years old Clinical indication: Weakness; Additional info: Eval vessel stenosis TECHNIQUE: Imaging protocol: Computed tomography angiography of the head with contrast. Exam focused on the arteries. 3D rendering (Not supervised by radiologist): MIP and/or 3D reconstructed images were created by the technologist. Radiation optimization: All CT scans at this facility use at least one of these dose optimization techniques: automated exposure control; mA and/or kV adjustment per patient size (includes targeted exams where dose is matched to clinical indication); or iterative reconstruction. Contrast material: OMNI 350; Contrast volume: 95 ml; Contrast route: INTRAVENOUS (IV); COMPARISON: CT head wo con* [id number] 02/20/2021 1:14 PM RADIATION DOSE METRICS: Total DLP (mGy-cm): 2111.33 FINDINGS: ANTERIOR CIRCULATION: Right internal carotid artery: There is calcification of the intracranial right internal carotid artery. No significant degrees of stenosis, thrombosis, or occlusion. No evidence of aneurysm. Right middle cerebral artery: Unremarkable. No occlusion or significant stenosis. No aneurysm. Right anterior cerebral artery: Unremarkable. No occlusion or significant stenosis. No aneurysm. Anterior communicating artery: Anterior communicating artery is present. Left internal carotid artery: There is calcification of the intracranial left internal carotid artery. No significant degrees of stenosis, thrombosis, or occlusion. No evidence of aneurysm. Left middle cerebral artery: Unremarkable. No occlusion or significant stenosis. No aneurysm. Left anterior cerebral artery: A1 segment of left anterior cerebral artery is small and A2 segment is therefore predominately supplied from contralateral side via anterior communicating artery. POSTERIOR CIRCULATION: Right vertebral artery: No occlusion or significant stenosis. No aneurysm. Left vertebral artery: No occlusion or significant stenosis. No aneurysm. Basilar artery: No occlusion or significant stenosis. No aneurysm. Patent bilateral superior cerebellar arteries. Right posterior cerebral artery: Unremarkable. No occlusion or significant stenosis. No aneurysm. Left posterior cerebral artery: No occlusion or significant stenosis. No aneurysm. IMPRESSION: No evidence of intracranial vascular significant stenosis or occlusion. PROCEDURE INFORMATION: Exam: CT Angiography Neck With Contrast Exam date and time: 02/20/2021 12:14 PM Age: 85 years old Clinical indication: Weakness; Additional info: Eval vessel stenosis TECHNIQUE: Imaging protocol: Computed tomography angiography of the neck with contrast. 3D rendering (Not supervised by radiologist): MIP and/or 3D reconstructed images were created by the technologist. Radiation optimization: All CT scans at this facility use at least one of these dose optimization techniques: automated exposure control; mA and/or kV adjustment per patient size (includes targeted exams where dose is matched to clinical indication); or iterative reconstruction. Contrast material: OMNI 350; Contrast volume: 95 ml; Contrast route: INTRAVENOUS (IV); COMPARISON: CT head wo con* [id number] 02/20/2021 1:14 PM RADIATION DOSE METRICS: Total DLP (mGy-cm): 2111.33 FINDINGS: Right common carotid artery: There is scattered calcification in right common carotid artery. There is prominent calcification distal common carotid artery which limits evaluation. There is narrowing of the distal common carotid artery suspected to be moderate range. Right internal carotid artery: There is prominent calcification at right carotid bulb which limits evaluation proximal ICA. There is stenosis in the most proximal aspect of the ICA suspected to be moderate. Right external carotid artery: There is approximately 65% stenosis in the proximal right external carotid artery. Left common carotid artery: There is approximately 40% narrowing in the proximal left common carotid artery. There is scattered calcification. Left internal carotid artery: There is approximately 50% narrowing in the proximal left internal carotid artery. No thrombosis or occlusion. No evidence dissection. Left external carotid artery: There is likely mild stenosis in the proximal left external carotid artery. Right vertebral artery: Right vertebral artery is congenitally smaller. There is likely mild narrowing of origin and proximal vertebral artery approximately 1 cm distal to origin. No occlusion or thrombosis. No evidence of dissection. Left vertebral artery: There is narrowing at origin left vertebral artery. There is scattered calcification without additional narrowing. No occlusion or thrombosis. No evidence dissection. Aorta: There is calcification in aortic arch without aneurysm or dissection. There is neural plaque/thrombus. Other arteries: There is calcification in subclavian arteries without dominant stenosis. Thyroid: There are small subcentimeter low-density nodules in thyroid gland which do not warrant further evaluation. Parotid and submandibular glands: The submandibular gland on right is atrophic. Soft tissues: Normal. No significant soft tissue swelling. Bones/joints: There are degenerative changes in the cervical spine noted. CT/CT angio headneck* [id number] IMPRESSION: 1. Mild proximal left CCA stenosis. Prominent calcification at carotid bulbs and bifurcations limits evaluation of stenosis. There is likely moderate stenosis proximal right ICA and [id number] stenosis of proximal left ICA. This can be further evaluated with comparison to ultrasound velocities or additionally MRA which is often not affected by the presence of calcification in vessel evaluation. 2. Mild proximal bilateral vertebral artery stenosis otherwise widely patent. COMMENTS: Consistent with the [place] [employer]'s Incidental Findings Committee white paper (J Am Rosendo Radiol 2015): In patients aged 35 years and older with an incidental thyroid nodule equal to or greater than 1.[address], MRI or extrathyroidal US, further evaluation with dedicated thyroid US is recommended for patients with normal life expectancy and without comorbidities. For smaller nodules without suspicious features, no further evaluation or follow up is recommended. REFERENCES: NASCET CRITERIA. The degree of internal carotid artery stenosis is based on NASCET criteria. Normal is no stenosis. Mild is less than 50% stenosis. Moderate is 50-69% stenosis. Severe is 70% to 99% stenosis. Total occlusion is no detectable patent lumen. Radiation Dose CTDIVOL = (mGy): DLP = 2111.33~2111.33 (mGy-cm)
--- NOTE | 2021-02-20 12:14 | XR_ITS ---
WS: [id number] Exam: XR chest 1V portable [id number] Date/Time of Exam: 02/20/2021 12:14 PM Reason For Exam: syncope Comparison 10/02/2019. The lungs are fully expanded. No infiltrates or pleural effusions are noted. Bibasal plaque atelectas is. Unremarkable cardiomediastinal silhouette. Regional bony elements are intact. XR/XR chest 1V portable [id number] IMPRESSION: 1. Bibasal plaque atelectasis noted. No acute cardiopulmonary finding.
--- NOTE | 2021-02-20 12:28 | ED_ITS ---
HPI - General Adult General: Chief complaint: Syncope Stated complaint: NEAR SYNCOPE, DIZZY, WEAK Time Seen by Provider: 02/20/21 12:14 History of Present Illness: HPI narrative: HPI: [85]yo patient w/ hx of HTN, HLD, colectomy BIBA for concern for concerns of recurrent syncope x 3 episodes witnessed by family in the last 2 weeks, most recently at 10:30am while patient was sititng down. On arrival, the patient denies any chest pain, SOB, palpitations, focal neurological weakness in the arms or legs. Patient reports mild nausea, fatigue, and lightheadedness right now. Patient could not recall exactly what happened, but denied any post-ictal confusion, bowel or bladder incontinence after the incident. Patient denies any prior episode of syncope. Denies any chest pain, shortness, palpitation, abdominal pain or back pain prior to the episode of syncope. No recent exertional chest pain or shortness of breath. Denies vertigo or disequilibrium. The episode of syncope was not preceded by any prodromes including nausea, pallor, or diaphoresis. No symptoms of diarrhea, hematuria, dysuria, melena or hematochezia. No prior documented hx of anemia requiring blood transfusions, VTE, or aortic aneurysm. Family denies any recent falls from the syncope episodes. Onset: 2 hrs ago Duration: x 1 episode Location: home Severity: moderate Review of Systems Narrative: Constitutional: No fever, no chills. HEENT: No vision changes CV: No chest pain, no palpitations PULM: No productive cough, no dyspnea. GI: No abdominal pain, no N/V/D. : No Dysuria MSKEL: No muscle pain SKIN: No new rashes, no lesions. NEURO: No headache, no focal weakness. HEME: No visible bruises PSYCH: Normal mood PFSH ED PFSH: Medical History (Updated 02/20/21 @ 16:38 by Melinda Dash MD) GERD (gastroesophageal reflux disease) Hypertension Surgical History (Updated 10/02/19 @ 03:36 by Aries Vu MD) H/O colectomy Diverticulitis S/P cholecystectomy Family History (Updated 10/02/19 @ 03:37 by Aries Vu MD) Other Hypertension Denies family history of Hyperlipidemia Lung disease Social History (Updated 06/06/20 @ 03:37 by Aries Vu MD) Smoking and tobacco status: former smoker Alcohol intake: never Lives independently: Yes Housing: House Physical Exam Narrative: EXAM NARRATIVE: Head: Atraumatic Eyes: PERRL, conjunctiva without injection, eyes tracking ENT: Mucous membrane moist NECK: Supple without lymphadenopathy, no nuchal rigidity LUNGS: LCTAB CV: RRR ABDOMEN: Soft, nontender in all quadrants, no guarding or rebound tenderness, no CVA or flank tenderness bilaterally EXTREMITY: Normal ROM SKIN: No rash or erythema NEURO: Mental status: A/Ox3 CN II-XII tested and intact. Sensation intact to sharp/dull differentiation in all extremities. Motor: Normal tone and bulk. No abnormal movements appreciated. No pronator drift. Strength tested and 5/5 in bilateral wrist flexion/extension, elbow flexion/extension, shoulder abduction, straight leg raise, knee flexion/extension, ankle dorsiflexion/plantarflexion. Patient ambulates with a steady gait. Coordination: Finger to nose and heel to richards testing intact bilaterally. PSYCH: Cooperative mood and affect Course Vital Signs: Vital signs: Vital Signs Temperature 97.8 F 02/21/21 16:19 Pulse Rate 74 02/21/21 16:19 Respiratory Rate 17 02/21/21 16:19 Blood Pressure 107/65 02/21/21 16:19 Pulse Oximetry 92 02/21/21 16:19 MDM - General Adult MDM Narrative: Medical decision making narrative: 85yo patient w/ hx of HLD, HTN, colectomy presenting to the ED with syncope x3 (most recently 2 hrs ago) - chest pain, -SOB, -palpitations. Currently symptom free. HDS. Neurologically intact. Given history, exam and workup, presentation not consistent with seizures given short time course, no postictal state, no seizure activity. Low suspicion for acute neurologic catastrophes to include ICH given lack of trauma, risk factors for bleeding diathesis. Low suspicion for vascular catastrophes to include PE, thoracic aortic dissection, AAA rupture. Will need evaluation for cardiac syncope Workup: CBC, BMP, Troponin, BNP, ECG, CXR for aspiration, CT brain and CTA head/neck Intervention: IVF, PO challenge, and serial reassessment EKG: No e/o STEMI. No evidence of Brugada?s sign, delta wave, epsilon wave, significantly prolonged QTc, or malignant arrhythmia. [2:30pm] On reassessment, patient continues to HDS. No acute complaints currently. No syncopal episode in the ER. No arrhythmia noted on the green building energy engineer. []Patient has been able to ambulate in the ED without issues. No suspicion of neurogenic syncope at this time. However, given age, cardiovascular risk factors and multiple co-rmbities, the patient will need inpatient workup for cardiac syncope. Patient agrees with the plan for inpatient admission at this time. Disposition: Admit to medicine, telemetry bed for cardiac monitoring and cardiology review. Lab Data: Labs: Lab Results 02/20/21 02/20/21 02/20/21 12:30 12:30 12:30 WBC 9.0 10^3/uL 10^3/ uL (4.0-10.0) RBC 4.54 10^6/uL 10^6 /uL (4.1-5.3) Hgb 14.3 g/dL g/dL (11.5-15.3) Hct 44.2 % % (37.0-47.0) MCV 97.4 fl fl (81-99) MCH 31.5 pg pg (28.0-34.0) MCHC 32.4 g/dL g/dL (30.0-36.0) RDW 12.8 % % (12.1-15.1) Plt Count 271 10^3/cmm 10^3 /cmm (130-400) MPV 10.2 fL fL (7.4-10.4) Neut % (Auto) 57.2 % % Lymph % (Auto) 32.4 % % Kern % (Auto) 8.2 % % Eos % (Auto) 1.8 % % Baso % (Auto) 0.2 % % Neut # (Auto) 5.13 10^3/uL 10^3 /uL (1.8-7.7) Lymph # (Auto) 2.9 10^3/uL 10^3/ uL (0.8-4.8) Kern # (Auto) 0.7 10^3/uL 10^3/ uL (0.2-0.9) Eos # (Auto) 0.2 10^3/uL 10^3/ uL (0.0-0.8) Baso # (Auto) 0.0 10^3/uL 10^3/ uL (0.0-0.1) Nucleated RBC % (a uto) 0 % % Nucleated RBCs # 0.0 /100WBC /100W BC Sodium 136 mmol/L mmol/L (136-145) Potassium 4.2 mmol/L mmol/L (3.5-5.1) Chloride 98 mmol/L mmol/L (98-107) Carbon Dioxide 26 mmol/L mmol/L (22-29) Anion Gap 16.2 (5-19) BUN 12 mg/dL mg/dL (8-23) Creatinine 0.6 mg/dL mg/dL (0.5-0.9) GFR Calculation Not Reportable Glucose 92 mg/dL mg/dL (65-115) Calculated Osmolal ity 281 mOsm/kg L mOs m/kg (285-295) Calcium 9.5 mg/dL mg/dL (8.5-10.5) Troponin T Baselin e 7 ng/L ng/L (0-10) Vitamin B12 Folate 02/20/21 02/20/21 12:30 12:30 WBC RBC Hgb Hct MCV MCH MCHC RDW Plt Count MPV Neut % (Auto) Lymph % (Auto) Kern % (Auto) Eos % (Auto) Baso % (Auto) Neut # (Auto) Lymph # (Auto) Kern # (Auto) Eos # (Auto) Baso # (Auto) Nucleated RBC % (a uto) Nucleated RBCs # Sodium Potassium Chloride Carbon Dioxide Anion Gap BUN Creatinine GFR Calculation Glucose Calculated Osmolal ity Calcium Troponin T Baselin e Vitamin B12 280 pg/mL pg/mL (232-1245) Folate 10.5 ng/mL ng/mL (4.8-37.3) Imaging Data^: Other Imaging: Radiologist's impression: [address] [id number] ReportSigned Patient: Lisa Weber #: [id number]: 6Acct #:[id number]/Sex: 85 / FADM Date: 02/20/21Loc: ERRoom/Bed:Attending Dr: Ordering Provider/Ordering MD: Chelsy Montes MD Date of Service: 02/20/21 Procedure(s): XR chest 1V portable [id number] Accession Number(s): [id number] Report Number: [id number] WS: [id number] Exam: XR chest 1V portable [id number] Date/Time of Exam: 02/20/2021 12:14 PM Reason For Exam: syncope Comparison 10/02/2019. The lungs are fully expanded. No infiltrates or pleural effusions are noted. Bibasal plaque atelectasis. Unremarkable cardiomediastinal silhouette. Regional bony elements are intact. XR/XR chest 1V portable [id number] IMPRESSION: 1. Bibasal plaque atelectasis noted. No acute cardiopulmonary finding. Dictated By:Radha Vizcarra By:Radha Vizcarra Date/Time:02/20 1231DD/ 1230 Discharge Plan Discharge Patient Disposition: Admitted As Inpatient Admit Provider: Melinda Dash Clinical Impression: Syncope and collapse Condition: Stable Discharge Diet: Cardiac Discharge Activity: Resume usual activity Coding Level of Care Code ED Technology Engineer for Brinda Prater
--- NOTE | 2021-02-20 12:33 | PC.NURSE ---
PATIENT CONNECTED TO AUTOMOBILE SERVICE STATION ATTENDANT PER PROTOCOL.
[2021-02-20 12:41] LABS: Basophils % 0.2 %; Eosinophils # 0.2 10^3/uL (0.0-0.8); Eosinophils % 1.8 %; Hematocrit 44.2 % (37.0-47.0); Hemoglobin 14.3 g/dL (11.5-15.3); Lymphocytes # 2.9 10^3/uL (0.8-4.8); Lymphocytes % 32.4 %; Mean Corpuscular HGB Conc 32.4 g/dL (30.0-36.0); Mean Corpuscular Hemoglobin 31.5 pg (28.0-34.0); Mean Corpuscular Volume 97.4 fl (81-99); Mean Platelet Volume 10.2 fL (7.4-10.4); Monocytes # 0.7 10^3/uL (0.2-0.9); Monocytes % 8.2 %; Neutrophils # 5.13 10^3/uL (1.8-7.7); Neutrophils % 57.2 %; Nucleated Red Blood Cells % 0 %; Platelet Count 271 10^3/cmm (130-400); Red Blood Count 4.54 10^6/uL (4.1-5.3); Red Cell Distribution Width 12.8 % (12.1-15.1)
[2021-02-20 13:06] LABS: Anion Gap 16.2 (5-19); Blood Urea Nitrogen 12 mg/dL (8-23); Calcium 9.5 mg/dL (8.5-10.5); Carbon Dioxide 26 mmol/L (22-29); Chloride 98 mmol/L (98-107); Glucose 92 mg/dL (65-115); Osmolality Calculated 281 mOsm/kg (285-295); Potassium 4.2 mmol/L (3.5-5.1); Sodium 136 mmol/L (136-145); Troponin(5th) Baseline 7 ng/L (0-10)
[2021-02-20] MEDS: iohexol 350 mg/mL 100 mL Btl IV (13:33)
--- NOTE | 2021-02-20 14:14 | ECG_ITS ---
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 Measurements Intervals [place] Rate: 69 P: 59 RI: 176 QRS: 50 QRSD: 87 T: 50 QT: 409 QTc: 440 Interpretive Statements SINUS RHYTHM WITH SINUS ARRHYTHMIA Compared to ECG 10/02/2019 01:10:59 No significant changes Electronically Signed On 02-20-2021 23:30:12 CDT by Tru Galan M.D. [id number]
[2021-02-20 15:34] LABS: Troponin 5 2HR 7.07 ng/L (0-10); Troponin 5 2HR Delta 0.07 ABS# (0-10)
--- NOTE | 2021-02-20 16:31 | PM.HP ---
Providers/Chief Complaint Admitting Physician: Melinda Dash MD Chief Complaint: NEAR SYNCOPE, DIZZY, WEAK History of Present Illness Lisa Weber is a 85 year old female with past medical history of hypertension, hyperlipidemia, colectomy, cholecystectomy presents to hospital today for feeling lightheaded and nauseous before she passed out three times. These events were witnessed by family in the last 2 weeks. Most recent event was today at 10:30 in the morning when patient was sitting down she suddenly passed out. After she regained consciousness she did not remember what had happened and denied postictal confusion. However she did experience lightheadedness and nausea before the event. Patient denied losing control of her bowel or bladder after the incident. And she has never had this type of incident before. Denies chest pain, shortness of breath, palpitations, abdominal pain, back pain prior to this episode. The episode did not proceed by nausea diaphoresis or lightheadedness. She denies diarrhea hematuria, melena or hematochezia. ED course blood pressure on arrival 168/75, respiratory rate 18, pulse rate 68, temperature 97.7. Physical exam was normal. Patient was symptom-free while in the ED. CBC BMP troponin BNP ECG chest x-ray CT brain, CTA head and neck were all done. EKG did not show any ST elevation HI or any other abnormalities. Patient was placed on hall monitor no arrhythmia was noted. Hospitalist were called for admission due to cardiovascular risk factors and multiple comorbidities. All labs unremarkable. CT head shows possible lacunar infarct in the lena which could be artifactual. MRI recommended. Minimal presumed small vessel ischemic disease of indeterminate age. CTA neck showed no evidence of intracranial vascular significant stenosis or occlusion. I did show mild proximal left CCA stenosis. Prominent calcification at carotid bulbs and bifurcations limits evaluation of stenosis. There is likely moderate stenosis proximal right ICA and mild to moderate stenosis of proximal left ICA. This can be further evaluated comparison to ultrasound velocities were additionally MRI which is often not affected by the presence of calcification vessel evaluation. Mild proximal bilateral vertebral history of is otherwise widely patent. MRI brain was ordered for the patient in the ER. Review of Systems General: Reports: 10 or more systems reviewed and unremarkable except in HPI and below Medications/Allergies Home Medications Medication Instructions Recorded Confirmed Last Taken Type aspirin 81 mg PO BEDTIME 10/01/19 02/20/21 02/19/21 History escitalopram oxalate 20 mg PO BEDTIME 10/01/19 02/20/21 02/19/21 History pantoprazole 40 mg PO BEDTIME 10/01/19 02/20/21 02/19/21 History amlodipine 2.5 mg PO BID 02/20/21 02/20/21 02/20/21 08:30 History cholecalciferol (vitamin D3) 125 mcg PO BEDTIME 02/20/21 02/20/21 02/19/21 History [Vitamin D3] meloxicam 15 mg PO DAILY PRN 02/20/21 02/20/21 Unknown History omega-3 fatty acids [[place] 3] 1,000 mg PO BEDTIME 02/20/21 02/20/21 02/19/21 History pyridoxine (vitamin B6) 100 mg PO BEDTIME 02/20/21 02/20/21 02/19/21 History vitamin E 400 unit PO BEDTIME 02/20/21 02/20/21 02/19/21 History Allergies Allergy/AdvReac Type Severity Reaction Status Date / Time ezetimibe [From Zetia] Allergy Unknown Verified 02/20/21 12:40 Uamzfal-WXA-IvE Reductase Allergy ALGY-Joint Verified 02/20/21 12:40 Inhibitor Pain PFSH Acute PFSH: Medical History (Updated 02/20/21 @ 16:38 by Melinda Dash MD) GERD (gastroesophageal reflux disease) Hypertension Surgical History (Updated 10/02/19 @ 03:36 by Aries Vu MD) H/O colectomy Diverticulitis S/P cholecystectomy Family History (Updated 10/02/19 @ 03:37 by Aries Vu MD) Other Hypertension Denies family history of Hyperlipidemia Lung disease Social History (Updated 10/02/19 @ 03:37 by Aries Vu MD) Smoking and tobacco status: former smoker Alcohol intake: never Lives independently: Yes Housing: House Vitals/I&O/Wt Last Vital Signs Temp 97.7 F 02/20/21 12:03 Pulse 73 02/20/21 15:52 Resp 16 02/20/21 15:52 BP 138/72 02/20/21 15:52 Pulse Ox 94 02/20/21 15:52 Weight last 48 hrs Weight 81.647 kg Physical Exam Narrative: EXAM NARRATIVE: General: Alert oriented x3, patient seen sitting up comfortably in bed. Vitals are stable. HEENT: Normocephalic, atraumatic, EOMI, Cardio: Regular rate rhythm, normal S1-S2, no murmurs rubs gallops, Respiratory: Good bilateral air entry, no wheezes no rhonchi appreciated GI: Abdomen soft, nontender, nondistended, bowel sounds + Behavior: Appropriate and cooperative Extremities: Pulses 2+, no edema, no cyanosis Neuro: No neurological focal deficits. Data : 02/20/21 12:30 02/20/21 12:30 A&P Assessment and plan (1) Syncope and collapse: Status: Acute (2) HTN (hypertension): Status: Acute Additional A&P Information Admit to observation. will place patient on hall monitor We will check echocardiogram Continue aspirin, Protonix, amlodipine. Zofran for nausea. We will check MRI brain Patient will require an event monitor at discharge. We will check lipid profile and hemoglobin A1c. Fluids: Not indicated Electrolyte: Replete as needed Nutrition: Cardiac diet Activity: Fall precautions, out of bed to chair with assistance DVT prophylaxis: Lovenox 40. Attestations Medical Necessity Statement*: anticipated < 48 hour hospital stay Time Spent in Patient Care: 16 - 35 minutes Coding Level of Care Code Acute Petroleum Engineering Teacher for Brinda Fwd Diagnoses Syncope and collapse R55 HTN (hypertension) I10
--- NOTE | 2021-02-20 17:10 | PC.NURSE ---
Екатерина reported the low 02 level to the nurse. 90%
[2021-02-20] MEDS: enoxaparin 40 mg/0.4 mL Syringe SUBCUT (17:49)
[2021-02-20] MEDS: amlodipine 5 mg Tablet 2.5 MG PO (17:49)
[2021-02-20 18:13] LABS: Vitamin B12 280 pg/mL (232-1245)
[2021-02-20 18:14] LABS: Folate Level 10.5 ng/mL (4.8-37.3)
[2021-02-20 19:50] LABS: Troponin 5 6HR 7.69 ng/L (0-10); Troponin 5 6HR Delta 0.69 ng/L (0-12)
[2021-02-20] MEDS: escitalopram 10 mg Tablet 20 MG PO (21:05)
[2021-02-20] MEDS: pantoprazole DR 40 mg Tablet PO (21:05)
[2021-02-20] MEDS: aspirin 81 mg EC Tablet PO (21:05)
[2021-02-21] VITALS: BP 117/60; PULSE 63; RESP 17; TEMP 36.9; O2SAT 92
[2021-02-21 04:00] VITALS: BP 128/75; PULSE 63; RESP 16; TEMP 36.8; O2SAT 91
[2021-02-21 05:15] LABS: Basophils % 0.6 %; Eosinophils # 0.2 10^3/uL (0.0-0.8); Eosinophils % 3.9 %; Hematocrit 42.4 % (37.0-47.0); Hemoglobin 13.7 g/dL (11.5-15.3); Lymphocytes # 2.9 10^3/uL (0.8-4.8); Lymphocytes % 56.3 %; Mean Corpuscular HGB Conc 32.3 g/dL (30.0-36.0); Mean Corpuscular Hemoglobin 31.4 pg (28.0-34.0); Monocytes # 0.5 10^3/uL (0.2-0.9); Monocytes % 9.1 %; Neutrophils # 1.54 10^3/uL (1.8-7.7); Neutrophils % 29.9 %; Nucleated Red Blood Cells % 0 %; Platelet Count 264 10^3/cmm (130-400); Red Blood Count 4.37 10^6/uL (4.1-5.3); Red Cell Distribution Width 12.9 % (12.1-15.1); White Blood Count 5.2 10^3/uL (4.0-10.0)
[2021-02-21 05:45] LABS: Alanine Aminotransferase 14 U/L (0-33); Albumin Level 3.8 g/dL (3.5-5.2); Alkaline Phosphatase 41 IU/L (35-105); Anion Gap 14.2 (5-19); Aspartate Amino Transferase 17 U/L (0-32); Blood Urea Nitrogen 12 mg/dL (8-23); Calcium 8.9 mg/dL (8.5-10.5); Carbon Dioxide 25 mmol/L (22-29); Chloride 106 mmol/L (98-107); Chol HDL Ratio 5.48 mg/dL (0.0-4.40); Cholesterol 241 mg/dL (0-200); Globulin 2.9 g/dL (1.3-4.6); Glucose 84 mg/dL (65-115); HDL Cholesterol 44 mg/dL (60-100); LDL Cholesterol Calculated 166 mg/dL (50-129); LDL HDL Ratio 3.77 RATIO (0.00-3.22); Osmolality Calculated 291 mOsm/kg (285-295); Phosphorus 3.5 mg/dL (2.5-4.5); Potassium 4.2 mmol/L (3.5-5.1); Sodium 141 mmol/L (136-145); Thyroid Stimulating Hormone 2.94 uIU/mL (0.27-4.20); Total Bilirubin 0.3 mg/dL (0.15-1.2); Total Protein 6.7 g/dL (6.6-8.7); Triglycerides 156 mg/dL (0-150)
[2021-02-21 06:21] LABS: Estmated Average Glucose 117; Hemoglobin A1C 5.7 % (4.0-6.0)
[2021-02-21 07:41] VITALS: BP 107/65; BP 94/59; PULSE 74
[2021-02-21 07:53] VITALS: BP 134/62; PULSE 67; RESP 17; TEMP 36.7; O2SAT 90
--- NOTE | 2021-02-21 08:00 | ECG_ITS ---
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 Measurements Intervals [place] Rate: 68 P: 71 MD: 194 QRS: 58 QRSD: 90 T: 56 QT: 398 QTc: 424 Interpretive Statements SINUS RHYTHM Compared to ECG 02/20/2021 14:14:44 Sinus arrhythmia no longer present Electronically Signed On 02-22-2021 1:27:34 CDT by Steff Ayala M.D. [id number]
--- NOTE | 2021-02-21 09:26 | PC.CHAP ---
Pastoral Care Encounter/Spiritual Assessment Type of Contact [] Declined manufactured buildings repairer visit [] Patient/Family/Request visit [] Outpatient visit [] Follow-up visit [] Physician referral [] Code/Alert [x] Routine visit [] Staff referral [] Actively dying [] Patient sleeping [] Family support [] [] Out of room [] Palliative care [] [] Receiving care in room [] Pre-surgical visit [] Trauma [] Long length of stay [] ICU visit [] Other: Relational/Emotional Strength [x] Patient feels connected with others/family/visitors/staff [] Distress [] Loneliness/isolation [] Abandonment Spirituality of Patient x[] Person of Jodee [] Attends Jehovah'S Witness of their Jodee [x] Believes in Prayer [] Reads Bible or Sabianist materials [] There are Spiritual issues to be addressed Hydrogen Cell Tender Interventions [x] Prayer [] Active listening [] Non-anxious presence [] Spiritual/emotional support [] Crisis/trauma care [] Spiritual counseling [] Bereavement support [] Provided bereavement packet [] Provided Bible/devotional materials [] Provided toy/stuffed animal, coloring book to patient or family member [] Provided Communion [] Anointing/Milo [] Salvation [x] Completed spiritual assessment [] Other: Impact on Illness or Injury [] Angry [] Fearful [] Anxious [] Often cries [] Exhaustion [] Unable to work [] Unable to attend anabaptist [] Unable to walk/stand [] Unable to read [] Unable to drive [] Unable to eat/drink [] Unable to sleep [] Unable to be with family [] Patient intubated [] Other: Summary patient feeling much better Time spent with patient 10 min
[2021-02-21] MEDS: amlodipine 5 mg Tablet 2.5 MG PO (09:32)
--- NOTE | 2021-02-21 10:00 | EV_ITS ---
[facility] Test Date: 2021-03-06 Pat Name: Lisa Weber Department: Room: 251 Gender: Female Attendant Arcade: VIVI: 1935 Requested By: Melinda Dash Order Number: [id number] Holly MD: Steff Ayala M.D. Interpretive Statements Event monitor findings Period 02/21/2021 to 03/06/2021 Total events recorded 4 Manual 4 Auto triggered---------0 Monitored time: Diagnostic 91% Artifact 1% No data 9% The baseline rhythm was normal sinus rhythm with a heart rate of 71bpm. Atrial fibrillation-----none. Normal sinus rhythm --- 99% Sinus tachycardia-------- 1% Sinus bradycardia--------0% Symptoms mentioned with the recording----no symptoms are mentioned with the recordings Arrhythmias recorded with the monitoring--sinus rhythm with a PACs Ventricular ectopics accounted for less than 1% of the total heart beats, 3350 Supraventricular ectopics comprised 8% of the total heart beats, 100,923 Bradycardic events -no significant bradycardic events Minimum heart rate recorded is bradycardia with a rate of 59 bpm Tachycardic events no significant tachycardic events Maximum heart rate recorded sinus tachycardia with a rate of 120 bpm Conclusion: 1. The baseline rhythm was found to be normal sinus with a heart rate of 71 bpm. Frequent supraventricular ectopics and rare ventricular ectopics were noted 2. No symptoms are mentioned with any of the recordings. No significant pauses 3. No previous similar studies, available for comparison Copies to Electronically Signed On 03-09-2021 14:11:50 TECHNOLOGY TRAINING ASSOCIATE by Steff Ayala M.D. [email or web address]
--- NOTE | 2021-02-21 10:15 | MR_ITS ---
WS: [id number] MRI BRAIN WITHOUT CONTRAST HISTORY: eval lena COMPARISON: CT head 02/20/2021 TECHNIQUE: Diffusion imaging, multiplanar T1, T2 and FLAIR imaging obtained. No evidence for acute infarct or hemorrhage. Quiroga-white matter differentiation is normal. Mild bilateral symmetric atrophy and mild chronic microvascular ischemic changes. Prior lacunar infar ct in the RIGHT caudate body. Ventricles and extra-axial spaces are normal. No inferior displacement of cerebellar tonsils. The sella turcica and pituitary gland are unremarkabl e. Dural venous sinuses and cheesh-na of [place] demonstrate no abnormality on this unenhanced studies. Paranasal sinuses: Clear. Mastoid air cells: Small bilateral mastoid air cell effusions. Calvarium and scalp: Intact. MR/MR head wo con* [id number] IMPRESSION: 1. No acute infarcts. 2. No acute hemorrhage. 3. Mild atrophy and mild chronic microvascular ischemic disease and small RIGH T caudate lacunar infarct.
[2021-02-21 11:17] VITALS: BP 107/65; PULSE 74; RESP 17; TEMP 36.6; O2SAT 92
--- NOTE | 2021-02-21 13:41 | P.PN_ITS ---
Subjective Subjective: Interval history: seen and examined today. she feels great. no further episodes. tele reviewed. Vitals/I&O/Wt Last Vital Signs Temp 97.8 F 02/21/21 11:17 Pulse 74 02/21/21 11:17 Resp 17 02/21/21 11:17 BP 107/65 02/21/21 11:17 Pulse Ox 92 02/21/21 11:17 02/20/21 02/21/21 02/21/21 22:59 06:59 14:59 Intake Total 540 / 540 360 / 360 Output Total 200 / 200 Balance 340 / 340 360 / 360 Weight last 48 hrs Weight 81.647 kg Data : 02/21/21 04:23 02/21/21 04:23 Coding Level of Care Code Acute Picture Frame Maker for Brinda Prater
--- NOTE | 2021-02-21 14:41 | PM.DCS ---
Discharge Providers Date of Admission: 02/20/21 13:45 Date of Discharge: February 21, 2021 Attending Provider at Admission: Melinda Dash MD Attending Provider at Discharge: Melinda Dash MD Diagnoses at Discharge Discharge Diagnosis (1) Syncope and collapse: Status: Acute (2) HTN (hypertension): Status: Acute Reason for Visit Reason for Visit: NEAR SYNCOPE, DIZZY, WEAK Hospital Course Hospital Course Lisa Weber is a 85 year old female with past medical history of hypertension, hyperlipidemia, colectomy, cholecystectomy presents to hospital today for feeling lightheaded and nauseous before she passed out three times. These events were witnessed by family in the last 2 weeks. Most recent event was today at 10:30 in the morning when patient was sitting down she suddenly passed out. After she regained consciousness she did not remember what had happened and denied postictal confusion. However she did experience lightheadedness and nausea before the event. Patient denied losing control of her bowel or bladder after the incident. And she has never had this type of incident before. Denies chest pain, shortness of breath, palpitations, abdominal pain, back pain prior to this episode. The episode did not proceed by nausea diaphoresis or lightheadedness. She denies diarrhea hematuria, melena or hematochezia. ED course blood pressure on arrival 168/75, respiratory rate 18, pulse rate 68, temperature 97.7. Physical exam was normal. Patient was symptom-free while in the ED. CBC BMP troponin BNP ECG chest x-ray CT brain, CTA head and neck were all done. EKG did not show any ST elevation KS or any other abnormalities. Patient was placed on threat monitoring analyst no arrhythmia was noted. Hospitalist were called for admission due to cardiovascular risk factors and multiple comorbidities. All labs unremarkable. CT head shows possible lacunar infarct in the lena which could be artifactual. MRI recommended. Minimal presumed small vessel ischemic disease of indeterminate age. CTA neck showed no evidence of intracranial vascular significant stenosis or occlusion. I did show mild proximal left CCA stenosis. Prominent calcification at carotid bulbs and bifurcations limits evaluation of stenosis. There is likely moderate stenosis proximal right ICA and mild to moderate stenosis of proximal left ICA. This can be further evaluated comparison to ultrasound velocities were additionally MRI which is often not affected by the presence of calcification vessel evaluation. Mild proximal bilateral vertebral history of is otherwise widely patent. MRI brain was ordered for the patient in the ER. Course: Patient was monitored on telemetry overnight. MRI brain was done which didnt show acute infarcts, no acute hemorrhage seen. 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 Telemetry did not show any arrythmias. Patient was discharged home with an event monitor. She will be following up with cardiology to go over results. Physical Exam Narrative: EXAM NARRATIVE: General: Alert oriented x3, patient seen sitting up comfortably in bed. Vitals are stable. HEENT: Normocephalic, atraumatic, EOMI, Cardio: Regular rate rhythm, normal S1-S2, no murmurs rubs gallops, Respiratory: Good bilateral air entry, no wheezes no rhonchi appreciated GI: Abdomen soft, nontender, nondistended, bowel sounds + Behavior: Appropriate and cooperative Extremities: Pulses 2+, no edema, no cyanosis Neuro: No neurological focal deficits. Discharge Data Data Completed and Pending: Completed Studies During Hospitalization Category Date Time Status CT angio headneck * 95312/20960 Urge nt Cat Scan 02/20/21 12:[address] head wo con* 7 0450 Urgent Cat Scan 02/20/21 12:14 Completed XR chest 1V radha ble [id number] Urgent Exams 02/20/21 12:14 Completed MR head wo con* 7 0551 Routine MRI 02/21/21 10:15 Completed Pending at discharge Category Date Time Status CA cardiac event monitor Routine Exams 02/21/21 10:00 Ordered Vitamin B6 Plasma Routine Lab 02/20/21 Ordered Labs from last 24 hours 02/21/21 02/21/21 02/21/21 04:23 04:23 04:23 WBC 5.2 RBC 4.37 Hgb 13.7 Hct 42.4 MCV 97.0 MCH 31.4 MCHC 32.3 RDW 12.9 Plt Count 264 MPV 10.0 Neut % (Auto) 29.9 Lymph % (Auto) 56.3 Coos % (Auto) 9.1 Eos % (Auto) 3.9 Baso % (Auto) 0.6 Neut # (Auto) 1.54 L Lymph # (Auto) 2.9 Coos # (Auto) 0.5 Eos # (Auto) 0.2 Baso # (Auto) 0.0 Nucleated RBC % (a uto) 0 Nucleated RBCs # 0.0 Sodium 141 Potassium 4.2 Chloride 106 Carbon Dioxide 25 Anion Gap 14.2 BUN 12 Creatinine 0.6 GFR Calculation Not Reportable Glucose 84 Estimat Average Gl ucose 117 Hemoglobin A1c 5.7 Calculated Osmolal ity 291 Calcium 8.9 Phosphorus 3.5 Magnesium 2.0 Total Bilirubin 0.3 AST 17 ALT 14 Alkaline Phosphata se 41 Troponin T 120 Min [place] Delta Troponin T Troponin T Hi Sens 6Hr Troponin T Hi Sens 6Hr Delta Total Protein 6.7 Albumin 3.8 Globulin 2.9 Triglycerides 156 H Cholesterol 241 H LDL Cholesterol, C alc 166 H HDL Cholesterol 44 L LDL/HDL Ratio 3.77 H Cholesterol/HDL Ra elpidio 5.48 H Vitamin B6 Vitamin B12 Folate TSH 2.94 02/20/21 02/20/21 02/20/21 19:15 19:15 14:58 WBC RBC Hgb Hct MCV MCH MCHC RDW Plt Count MPV Neut % (Auto) Lymph % (Auto) [place] % (Auto) Eos % (Auto) Baso % (Auto) Neut # (Auto) Lymph # (Auto) [place] # (Auto) Eos # (Auto) Baso # (Auto) Nucleated RBC % (a uto) Nucleated RBCs # Sodium Potassium Chloride Carbon Dioxide Anion Gap BUN Creatinine GFR Calculation Glucose Estimat Average Gl ucose Hemoglobin A1c Calculated Osmolal ity Calcium Phosphorus Magnesium Total Bilirubin AST ALT Alkaline Phosphata se Troponin T 120 Min [place] 7.07 Delta Troponin T 0.07 Troponin T Hi Sens 6Hr 7.69 Troponin T Hi Sens 6Hr Delta 0.69 Total Protein Albumin Globulin Triglycerides Cholesterol LDL Cholesterol, C alc HDL Cholesterol LDL/HDL Ratio Cholesterol/HDL Ra elpidio Vitamin B6 Pending Vitamin B12 Folate TSH 02/20/21 02/20/21 12:30 12:30 WBC RBC Hgb Hct MCV MCH MCHC RDW Plt Count MPV Neut % (Auto) Lymph % (Auto) Co[place] % (Auto) Eos % (Auto) Baso % (Auto) Neut # (Auto) Lymph # (Auto) [place] # (Auto) Eos # (Auto) Baso # (Auto) Nucleated RBC % (a uto) Nucleated RBCs # Sodium Potassium Chloride Carbon Dioxide Anion Gap BUN Creatinine GFR Calculation Glucose Estimat Average Gl ucose Hemoglobin A1c Calculated Osmolal ity Calcium Phosphorus Magnesium Total Bilirubin AST ALT Alkaline Phosphata se Troponin T 120 Min [place] Delta Troponin T Troponin T Hi Sens 6Hr Troponin T Hi Sens 6Hr Delta Total Protein Albumin Globulin Triglycerides Cholesterol LDL Cholesterol, C alc HDL Cholesterol LDL/HDL Ratio Cholesterol/HDL Ra elpidio Vitamin B6 Vitamin B12 280 Folate 10.5 TSH Vitals: Last Vital Signs Temp 97.8 F 02/21/21 11:17 Pulse 74 02/21/21 11:17 Resp 17 02/21/21 11:17 BP 107/65 02/21/21 11:17 Pulse Ox 92 02/21/21 11:17 Discharge Plan Discharge Patient Disposition: Home Condition: Stable Prescriptions: Continued aspirin 81 mg Tablet,Delayed Release (Dr/Ec) 81 mg PO BEDTIME RF: 0 pantoprazole 40 mg Tablet,Delayed Release (Dr/Ec) 40 mg PO BEDTIME RF: 0 escitalopram oxalate 20 mg Tablet 20 mg PO BEDTIME RF: 0 meloxicam 15 mg tablet 15 mg PO DAILY PRN (Reason: Pain) RF: 0 pyridoxine (vitamin B6) 100 mg Tablet 100 mg PO BEDTIME RF: 0 vitamin E 400 unit Capsule 400 unit PO BEDTIME RF: 0 omega-3 fatty acids Capsule 1,000 mg PO BEDTIME RF: 0 Vitamin D3 125 mcg (5,000 unit) Tablet 125 mcg PO BEDTIME RF: 0 Held amlodipine 2.5 mg tablet 2.5 mg PO BID RF: 0 Hold Instructions: see pcp before resuming. Discharge Orders: Discharge Order (Routine); Ordered 02/21/21 Ordered By: Melinda Dash Referrals: Steff Asencio MD [Physician] - Steff Ayala MD [Physician] - 2 weeks (Event monitor placed) Discharge Diet: Cardiac Discharge Activity: Resume usual activity Patient Instructions: Syncope, Chronic Hypertension (ED), Opioid Safety Activity Restrictions/Additional Instructions: Event monitor setup. WIll follow with Dr. Ayala Discharge Attestations Time Spent in Discharge Care*: less than 30 min Status at Discharge: Cognitive status at discharge: cognitively intact, Behavioral status at discharge: cooperative, Quality Metrics Clinical Quality Measures During this hospital stay, did patient experience: None Coding Level of Care Code Acute Chg FW DC note Diagnoses Syncope and collapse R55 HTN (hypertension) I10
[2021-02-21 16:19] VITALS: BP 107/65; PULSE 74; RESP 17; TEMP 36.6; O2SAT 92
== END 2021-02-21 14:50 | disposition home or self-care (01) ==
LOC: ER 14:40 → MEDSURG 16:24
PROVIDERS: Admitting Provider Internal Medicine; Emergency Provider Emergency Medicine; Visit Provider Internal Medicine
DX: R55 Syncope and collapse (principal); I10 Essential (primary) hypertension; E78.5 Hyperlipidemia, unspecified; K21.9 Gastro-esophageal reflux disease without esophagitis; Z79.82 Long term (current) use of aspirin; Z87.891 Personal history of nicotine dependence; Z79.899 Other long term (current) drug therapy
CPT/HCPCS: 36415; 70450; 70496; 70498; 70551; 71045; 80048; 80053; 80061; 82607; 82746; 83036; 83735; 84100; 84207; 84443; 84484; 85025; 93005; 93271; 96372; 99285; G0378; J1650; Q9967